=== PATIENT | male | born 1995 | race Caucasian/White ===

== ENCOUNTER 2016-12-10 14:44 | Emergency (ER) | payer BC ==
[~2016-12-10] VITALS: Ht 185.4 cm; Wt 120.0 kg
[2016-12-10 14:46] VITALS: BP 142/77; PULSE 93; RESP 20; TEMP 98; O2SAT 98
[2016-12-10] MEDS ORDERED: SODIUM CHLOR 0.9% 1000 ML INJ 1,000 ML IV SCH (14:56)
[2016-12-10] MEDS ORDERED: ONDANSETRON HCL 4 MG/2 ML VIAL IVP ONE (15:00)
[2016-12-10] MEDS ORDERED: SODIUM CHLORIDE 0.9% FLUSH 5 ML FLUSH IVF PRN (15:00)
[2016-12-10] MEDS ORDERED: KETOROLAC TROMETHAMINE 30 MG/ML (IVP) VIAL IVP ONE (15:00)
[2016-12-10] MEDS ORDERED: MORPHINE SULFATE 4 MG/ML INJ IV PUSH ONE (15:00)
--- NOTE | 2016-12-10 15:00 | PD ---
HPI Chief Complaint: Flank/Kidney Pain Time Seen by Provider: 14:57 Travel History International Travel<30 days: No Contact w/Intl Traveler<30days: No Traveled to known affect area: No History of Present Illness HPI 21-year-old male presents to the emergency department for evaluation of sudden onset left flank pain that began 30 minutes ago. The patient describes it as a constant throbbing pain. Denies any radiation of pain. Denies any nausea, vomiting, diarrhea, constipation, fever, chills, burning with urination, hematuria. States that he had kidney stones about 4 years ago and thinks he may have kidney stones again, states last time he passed the kidney stones without any difficulty. He has not taken anything for his symptoms so far. No aggravating or alleviating factors. Symptoms are moderate in severity. No other complaints. PFSH Past Medical History Diminished Hearing: No Kidney Stones: Yes Tetanus Vaccination: Unknown Influenza Vaccination: Yes ?: Not Past Surgical History Surgical History: No Previous Surgery Social History Alcohol Use: No Tobacco Use: No Substance Use: No Allergies-Medications (Allergen,Severity, Reaction): Coded Allergies: No Known Allergies (Unverified , 12/10/16) Reported Meds & Prescriptions Reported Meds & Active Scripts Active Zofran (Ondansetron HCl) 4 Mg Tab 4 Mg PO Q6HR PRN Lortab (Hydrocodone-Acetaminophen) 5-325 Mg Tab 1 Tab PO Q6H PRN Review of Systems Except as stated in HPI: all other systems reviewed are Neg Physical Exam Narrative GENERAL: Well-nourished and well-developed pleasant male patient in moderate amount of pain, no acute distress. SKIN: Warm and dry. HEAD: Normocephalic and atraumatic. EYES: No injection, drainage, or hyphema noted. PERRLA. EOMI. ENT: No nasal drainage noted. Oropharynx is clear. NECK: Supple and the trachea is midline. CARDIOVASCULAR: Regular rate and rhythm. RESPIRATORY: Breath sounds are equal bilaterally with no accessory muscle use, wheezing, rhonchi, or crackles. GASTROINTESTINAL: Tenderness to palpation of left flank. Abdomen is soft and nondistended. Negative McBurney's point. Negative Delcid's sign. MUSCULOSKELETAL: No obvious deformities, swelling, cyanosis, or ecchymosis is present throughout the upper and lower extremities. Patient has full range of motion without any signs of neurovascular compromise. NEUROLOGICAL: Awake, alert, and oriented. Normal speech and gait. Cranial nerves are grossly intact. Data Data Last Documented VS Vital Signs Date Time Temp Pulse Resp B/P Pulse Ox O2 Delivery O2 Flow Rate FiO2 12/10/16 15:14 100 Room Air 12/10/16 14:51 94 19 12/10/16 14:46 98.0 142/77 Orders Complete Blood Count With Diff (12/10/16 14:56) Comprehensive Metabolic Panel (12/10/16 14:56) Lipase (12/10/16 14:56) Urinalysis - C+S If Indicated (12/10/16 14:56) Ct Abd/Pel W/O Iv Contrast (12/10/16 14:56) Iv Access Insert/Monitor (12/10/16 14:56) Ecg Monitoring (12/10/16 14:56) Oximetry (12/10/16 14:56) Morphine Inj (Morphine Inj) (12/10/16 15:00) Ondansetron Inj (Zofran Inj) (12/10/16 15:00) Sodium Chlor 0.9% 1000 Ml Inj (Ns 1000 M (12/10/16 14:56) Sodium Chloride 0.9% Flush (Ns Flush) (12/10/16 15:00) Ketorolac Inj (Toradol Inj) (12/10/16 15:00) Urine Culture (12/10/16 16:15) Labs Laboratory Tests Test 12/10/16 12/10/16 15:04 16:15 White Blood Count 10.2 TH/MM3 Red Blood Count 5.32 MIL/MM3 Hemoglobin 14.7 GM/DL Hematocrit 42.8 % Mean Corpuscular Volume 80.6 FL Mean Corpuscular Hemoglobin 27.6 PG Mean Corpuscular Hemoglobin 34.3 % Concent Red Cell Distribution Width 14.2 % Platelet Count 266 TH/MM3 Mean Platelet Volume 9.7 FL Neutrophils (%) (Auto) 75.3 % Lymphocytes (%) (Auto) 17.4 % Monocytes (%) (Auto) 5.8 % Eosinophils (%) (Auto) 1.1 % Basophils (%) (Auto) 0.4 % Neutrophils # (Auto) 7.6 TH/MM3 Lymphocytes # (Auto) 1.8 TH/MM3 Monocytes # (Auto) 0.6 TH/MM3 Eosinophils # (Auto) 0.1 TH/MM3 Basophils # (Auto) 0.0 TH/MM3 CBC Comment DIFF FINAL Differential Comment Sodium Level 139 MEQ/L Potassium Level 3.6 MEQ/L Chloride Level 106 MEQ/L Carbon Dioxide Level 22.2 MEQ/L Anion Gap 11 MEQ/L Blood Urea Nitrogen 11 MG/DL Creatinine 1.05 MG/DL Estimat Glomerular Filtration 90 ML/MIN Rate Random Glucose 133 MG/DL Calcium Level 9.1 MG/DL Total Bilirubin 0.5 MG/DL Aspartate Amino Transf 22 U/L (AST/SGOT) Alanine Aminotransferase 34 U/L (ALT/SGPT) Alkaline Phosphatase 128 U/L Total Protein 8.5 GM/DL Albumin 4.3 GM/DL Lipase 59 U/L Urine Color YELLOW Urine Turbidity CLEAR Urine pH 7.5 Urine Specific [place] 1.019 Urine Protein TRACE mg/dL Urine Glucose (UA) NEG mg/dL Urine Ketones 10 mg/dL Urine Occult Blood LARGE Urine Nitrite NEG Urine Bilirubin NEG Urine Urobilinogen LESS THAN 2.0 MG/DL Urine Leukocyte Esterase NEG Urine RBC /hpf Urine WBC 2 /hpf Urine WBC Clumps RARE Urine Bacteria RARE /hpf Urine Hyaline Casts 1 /lpf Urine Mucus FEW /lpf Microscopic Urinalysis Comment CULTURE INDICATED MDM Medical Decision Making Medical Screen Exam Complete: Yes Emergency Medical Condition: Yes Differential Diagnosis Nephrolithiasis versus pyelonephritis versus diverticulitis versus colitis Narrative Course 21-year-old male presents to the emergency department for evaluation of sudden onset left flank pain. Patient is afebrile, vital signs are stable. He does appear to be in a moderate amount of discomfort. He has a history of kidney stones. IV access is obtained, labs were drawn and sent. A noncontrast CT has been ordered. Patient is administered morphine, Toradol, fluids and Zofran. CBC is unremarkable. CMP is unremarkable. Urinalysis shows 10 ketones, large occult blood, innumerable red blood cells, rare white blood cell clumps, rare bacteria and few mucus. CT of the abdomen and pelvis shows a 3 mm stone in left middle third ureter. There are two 3-4 mm nonobstructing stones in the right kidney. Patient is reassessed after medications are reports great improvement of symptoms, states his pain is now 1 on a scale of 1-10. Discussed all results with patient and family. He'll be discharged with pain medication and antiemetics. Instructed to follow-up with a urologist as an outpatient. Instructed to return to the emergency department for worsening pain, vomiting or fever. Patient verbalizes understanding and is in agreement with treatment plan. I discussed the case with my attending physician Dr. Urias who is aware of the patients history, physical examination findings, and treatment plan. Diagnosis Primary Impression: Left nephrolithiasis Referrals: Urologist Patient Instructions: General Instructions, Kidney Stones (ED) Additional Instructions: Take medication as prescribed. Do not take Lortab with alcohol or while driving. Follow-up with a urologist. Return to the ED for any acute worsening of symptoms. Med/Other Pt SpecificInfo: Prescription(s) given Scripts Ondansetron (Zofran)4 Mg Tab4 Mg PO Q6HR PRN (NAUSEA OR VOMITING) #12 TAB Ref 0 Prov:Kendra Urias MD 12/10/16 Hydrocodone-Acetaminophen (Lortab)5-325 Mg Tab1 Tab PO Q6H PRN (PAIN GREATER THAN 6) #14 TAB Ref 0 Prov:Kendra Urias MD 12/10/16 Disposition: 01 DISCHARGE HOME Condition: Stable Stacey Cha Dec 10, 2016 15:00
[2016-12-10 15:14] VITALS: O2SAT 100
[2016-12-10 15:39] LABS: AUTOMATED NEUTROPHIL # 7.6 TH/MM3 (1.8-7.7); BASOPHIL % 0.4 % (0.0-2.0); EOSINOPHIL # 0.1 TH/MM3 (0-0.4); EOSINOPHIL % 1.1 % (0.0-4.0); HEMATOCRIT 42.8 % (39.0-51.0); HEMO FLAGS DIFF FINAL; LYMPH % 17.4 % (9.0-44.0); LYMPHOCYTE # 1.8 TH/MM3 (1.0-4.8); MEAN CELL VOLUME 80.6 FL (80.0-100.0); MEAN CORPUSCULAR HEMOGLOBIN 27.6 PG (27.0-34.0); MEAN CORPUSCULAR HGB CONC 34.3 % (32.0-36.0); MONO % 5.8 % (0.0-8.0); NEUT % 75.3 % (16.0-70.0); PLATELET COUNT 266 TH/MM3 (150-450); RED BLOOD COUNT 5.32 MIL/MM3 (4.50-5.90); RED CELL DISTRIBUTION WIDTH 14.2 % (11.6-17.2); WHITE BLOOD COUNT 10.2 TH/MM3 (4.0-11.0)
--- NOTE | 2016-12-10 16:02 | RADRPT ---
EXAM DATE/TIME: 12/10/2016 15:28 [facility] COMPARISON: No previous studies available for comparison. INDICATIONS : Acute left lower flank pain. ORAL CONTRAST: No oral contrast ingested. RADIATION DOSE: 12.79 CTDIvol (mGy) MEDICAL HISTORY : Renal calculi. SURGICAL HISTORY : None. ENCOUNTER: Initial ACUITY: 1 day PAIN SCALE: 8/10 LOCATION: Right flank TECHNIQUE: Volumetric scanning of the abdomen and pelvis was performed. Using automated exposure control and adjustment of the mA and/or kV according to patient size, radiation dose was kept as low as reasonably achievable to obtain optimal diagnostic quality images. FINDINGS: The lung bases are clear. There is no pericardial effusion. The liver is free of foca l defects. Spleen, pancreas, and adrenals are unremarkable. RIGHT KIDNEY: There are two small 3 to 4 mm calculi in the right kidney without any calcification a long the expected course of the right ureter. There is very mild perinephric stranding about the left kidney with a 3 mm calcification in the middl e third of the left ureter. Pelvic contents are unremarkable with the exception of scattered phleboliths in the pelvis. CONCLUSION: 1. Obstructing stone in the middle third of the left ureter. 2. Calcifications seen on series II image 165 on the right is probably a phlebolith with a central cody cency, however I cannot be entirely sure. Correlation is suggested. Elton Mahan MD FACR on December 10, 2016 at 15:48 Board Certified Radiologist. This report was verified electronically.
[2016-12-10 16:06] LABS: ANION GAP 11 MEQ/L (5-15); AST (GOT) 22 U/L (15-39); BICARBONATE 22.2 MEQ/L (21.0-32.0); BLOOD UREA NITROGEN 11 MG/DL (7-18); CHLORIDE 106 MEQ/L (98-107); GLOMERULAR FILTRATION RATE 90 ML/MIN (>89); POTASSIUM 3.6 MEQ/L (3.5-5.1); SODIUM (NA) 139 MEQ/L (136-145)
[2016-12-10 16:10] LABS: ALKALINE PHOSPHATASE 128 U/L (45-117); ALT (GPT) 34 U/L (9-52); TOTAL BILIRUBIN ADULT 0.5 MG/DL (0.2-1.0)
[2016-12-10 16:42] LABS: BACTERIA, URINE RARE /hpf; BLOOD, URINE LARGE (NEG); COMMENT (UR) CULTURE INDICATED; CULTURE IF INDICATED CULTURE INDICATED; GLUCOSE,URINE NEG (NEG); HYALINE CAST, URINE 1 /lpf (RARE); KETONE, URINE 10 mg/dL (NEG); MUCUS URINE FEW /lpf (OCC); NITRITE,URINE NEG (NEG); PH, URINE 7.5 (5.0-8.5); URINE COLOR YELLOW (YELLW/STRAW)
[2016-12-10] MEDS ORDERED: ZOFR4TAB PO (17:00)
[2016-12-10] MEDS ORDERED: HYDR-3533 PO (17:00)
== END 2016-12-10 19:02 | disposition home or self-care (01) ==
LOC: NEPC 14:44
DX: N20.0 Calculus of kidney (principal); R82.71 Bacteriuria
CPT/HCPCS: 74176; 80053; 81001; 83690; 85025; 87086; 96374; 96375; 99284; J1885; J2270; J2405; J7030